=== PATIENT | female | born 1930 | race Caucasian/White ===

== ENCOUNTER 2018-07-28 15:35 | Emergency (ER) | payer MEDICARE, BC ==
[2018-07-28 15:57] VITALS: BP 120/80
[2018-07-28] MEDS ORDERED: Sodium Chloride 0.9% 10 ML Syringe FLUSH PRN (16:59)
--- NOTE | 2018-07-28 19:46 | EDM.PDOC ---
ED HPI GENERAL MEDICAL PROBLEM - General Chief Complaint: Neurological Problem Stated Complaint: PT DOCTOR RECOMMEND BLOOD WORK/EKG/UNRINE TEST Time Seen by Provider: 07/28/18 16:43 Source of Information: Reports: Patient, Family, RN Notes Reviewed - History of Present Illness INITIAL COMMENTS - FREE TEXT/NARRATIVE: 88-year-old female been brought in by family member with concern about rate running more rapid than usual. She does have history of intermittent atrial fib and apparently for the last 2 or 3 days has had some intermittent heart readings in the 110-114 range. She also has had some generalized weakness, nonspecific dizziness when standing or walking. No chest pain or difficulty breathing. However family member tells me that her normal weight is in the 128 to 1:30 range and that her weight today is running at 133 so about 3-5 pounds over baseline. Also she has history of bladder cancer and family members have great concern that she might have a UTI with a recent cystoscopy done just a few weeks ago and UTI that was treated not long before that. Patient reports no voiding symptoms. No fever chills nausea or vomiting. There has been no peripheral leg edema. - Related Data Allergies Allergy/AdvReac Type Severity Reaction Status Date / Time azithromycin Allergy Other Verified 07/28/18 17:47 codeine Allergy Lightheaded Verified 03/15/16 11:31 ness Fish Containing Products Allergy Other Verified 03/15/16 11:31 Iodinated Contrast- Oral and Allergy Rash Verified 03/15/16 11:31 IV Dye [Iodinated Contrast Media - IV Dye] Penicillins Allergy Hives Verified 03/15/16 11:31 sulfamethoxazole Allergy Hives Verified 07/28/18 17:47 [From Bactrim] trimethoprim [From Bactrim] Allergy Hives Verified 07/28/18 17:47 Home Meds: Home Meds Levothyroxine [Synthroid] 100 mcg PO ASDIRECTED 01/08/16 [History] Losartan Potassium 100 mg PO DAILY 01/08/16 [History] Metoprolol Succinate [Toprol XL] 25 mg PO BID 01/08/16 [History] Apixaban [Eliquis] 2.5 mg PO BID 02/05/16 [History] Furosemide [Lasix] 40 mg PO DAILY 02/05/16 [History] Potassium Chloride 10 meq PO BID 02/05/16 [History] Sotalol [Betapace] 50 mg PO DAILY 07/28/18 [History] Past Medical History HEENT History: Reports: Impaired Vision, Macular Degeneration Cardiovascular History: Reports: Afib, Hypertension, SOB on Exertion Respiratory History: Reports: Pneumonia, Recurrent Gastrointestinal History: Reports: Irritable Bowel Syndrome Genitourinary History: Reports: UTI, Recurrent Musculoskeletal History: Reports: Other (See Below) Other Musculoskeletal History: tendonitis in hand and had shoulder surgery Endocrine/Metabolic History: Reports: Other (See Below) Other Endocrine/Metabolic History: thyroid cancer Oncologic (Cancer) History: Reports: Bladder, Thyroid - Past Surgical History Respiratory Surgical History: Reports: Other (See Below) Female Surgical History: Reports: D&C, Hysterectomy Social & Family History - Tobacco Use Smoking Status *Q: Former Smoker Used Tobacco, but Quit: Yes Month/Year Tobacco Last Used: 10 - Caffeine Use Caffeine Use: Reports: Coffee - Recreational Drug Use Recreational Drug Use: No ED ROS GENERAL - Review of Systems Review Of Systems: See Below Constitutional: Denies: Fever, Chills, Diaphoresis HEENT: Reports: No Symptoms Respiratory: Reports: Shortness of Breath. Denies: Cough Cardiovascular: Reports: Dyspnea on Exertion, Lightheadedness. Denies: Chest Pain GI/Abdominal: Denies: Abdominal Pain, Nausea, Vomiting : Reports: No Symptoms Musculoskeletal: Denies: Back Pain Skin: Reports: No Symptoms Neurological: Reports: Dizziness. Denies: Numbness, Tingling, Trouble Speaking , Difficulty Walking, Weakness ED EXAM, DIZZINESS - Physical Exam Exam: See Below General Appearance: Alert, No Apparent Distress Eye Exam: Bilateral Eye: PERRL Throat/Mouth: Normal Inspection, Normal Oropharynx Head Exam: Atraumatic. No: Facial Swelling Neck: Supple, Other (No JVD) Respiratory/Chest: No Respiratory Distress, Lungs Clear. No: Rales, Rhonchi, Wheezing Cardiovascular: Irregularly Irregular GI/Abdominal: Soft, Non-Tender Neurological: Alert, No Motor/Sensory Deficits, Oriented x 3 Back Exam: No: CVA Tenderness (L), CVA Tenderness (R) Extremities: Normal Inspection. No: Pedal Edema, Leg Pain Skin Exam: Warm, Dry, Normal Color EKG INTERPRETATION EKG Date: 07/28/18 Rhythm: A-Fib Rate (Beats/Min): 92 [place]: Normal QRS: LBBB ST-T: Depressed (T-wave inversions with mild ST depression V4, 5 and 6) Course - Vital Signs Last Recorded V/S: Last Vital Signs Temp 97.7 F 07/28/18 15:53 Pulse 97 07/28/18 15:53 Resp 20 07/28/18 15:53 BP 120/80 07/28/18 15:53 Pulse Ox 97 07/28/18 15:53 - Orders/Labs/Meds Orders: Active Orders 24 hr Category Date Time Status EKG 12 Lead [EKG Documentation Completion] [RC] STAT Care 07/28/18 17:00 Active Peripheral IV Care [RC] . DIRECTED Care 07/28/18 17:01 Active Chest 1V Frontal [CR] Stat Exams 07/28/18 17:00 Taken CULTURE URINE [RM] Stat Lab 07/28/18 17:20 Received Sodium Chloride 0.9% [Saline Flush] Med 07/28/18 16:59 Active 10 ml FLUSH ASDIRECTED PRN Peripheral IV Insertion Adult [OM.PC] Stat Oth 07/28/18 17:00 Ordered Medication Orders Sodium Chloride (Saline Flush) 10 ml FLUSH ASDIRECTED PRN PRN Reason: Keep Vein Open Last Admin: 07/28/18 17:26 Dose: 10 ml Labs: Laboratory Tests 07/28/18 07/28/18 07/28/18 Range/Units 17:15 17:15 17:15 WBC 7.16 (3.98-10.04) K/mm3 RBC 4.07 (3.98-5.22) M/mm3 Hgb 12.2 (11.2-15.7) gm/L Hct 37.8 (34.1-44.9) % MCV 92.9 (79.4-94.8) fl MCH 30.0 (25.6-32.2) pg MCHC 32.3 (32.2-35.5) g/dl RDW Std Deviation 54.5 H (36.4-46.3) fL Plt Count 465 H (182-369) K/mm3 MPV 10.6 (9.4-12.3) fl Neut % (Auto) 58.2 (34.0-71.1) % Lymph % (Auto) 26.4 (19.3-51.7) % [place] % (Auto) 5.9 (4.7-12.5) % Eos % (Auto) 4.2 (0.7-5.8) Baso % (Auto) 5.2 H (0.1-1.2) % Neut # (Auto) 4.17 (1.56-6.13) K/mm3 Lymph # (Auto) 1.89 (1.18-3.74) K/mm3 [place] # (Auto) 0.42 H (0.24-0.36) K/mm3 Eos # (Auto) 0.30 (0.04-0.36) K/mm3 Baso # (Auto) 0.37 H (0.01-0.08) K/mm3 Manual Slide Review Abnormal smear Sodium 135 L (136-145) mEq/L Potassium 3.9 (3.5-5.1) mEq/L Chloride 103 (98-107) mEq/L Carbon Dioxide 25 (21-32) mEq/L Anion Gap 10.9 (5-15) BUN 42 H (7-18) mg/dL Creatinine 1.6 H (0.55-1.02) mg/dL Est Cr Clr Drug Dosing 20.10 mL/min Estimated GFR (MDRD) 30 (>60) mL/min BUN/Creatinine Ratio 26.3 H (14-18) Glucose 110 (83-115) mg/dL Calcium 9.2 (8.5-10.1) mg/dL Total Bilirubin 0.2 (0.2-1.0) mg/dL AST 18 (15-37) U/L ALT 22 (14-59) U/L Alkaline Phosphatase 97 (46-116) U/L NT-Pro-B Natriuret Pep 5035 H (0-450) pg/mL Total Protein 7.5 (6.4-8.2) g/dl Albumin 3.2 L (3.4-5.0) g/dl Globulin 4.3 gm/dL Albumin/Globulin Ratio 0.7 L (1-2) Urine Color (Yellow) Urine Appearance (Clear) Urine pH (5.0-8.0) Ur Specific [place] (1.005-1.030) Urine Protein (Negative) Urine Glucose (UA) (Negative) Urine Ketones (Negative) Urine Occult Blood (Negative) Urine Nitrite (Negative) Urine Bilirubin (Negative) Urine Urobilinogen (0.2-1.0) Ur Leukocyte Esterase (Negative) Urine RBC (0-5) /hpf Urine WBC (0-5) /hpf Ur Epithelial Cells (0-5) /hpf Urine Bacteria (FEW) /hpf Hyaline Casts (0-5) /lpf Urine Mucus (FEW) /hpf 07/28/18 Range/Units 17:25 WBC (3.98-10.04) K/mm3 RBC (3.98-5.22) M/mm3 Hgb (11.2-15.7) gm/L Hct (34.1-44.9) % MCV (79.4-94.8) fl MCH (25.6-32.2) pg MCHC (32.2-35.5) g/dl RDW Std Deviation (36.4-46.3) fL Plt Count (182-369) K/mm3 MPV (9.4-12.3) fl Neut % (Auto) (34.0-71.1) % Lymph % (Auto) (19.3-51.7) % [place] % (Auto) (4.7-12.5) % Eos % (Auto) (0.7-5.8) Baso % (Auto) (0.1-1.2) % Neut # (Auto) (1.56-6.13) K/mm3 Lymph # (Auto) (1.18-3.74) K/mm3 [place] # (Auto) (0.24-0.36) K/mm3 Eos # (Auto) (0.04-0.36) K/mm3 Baso # (Auto) (0.01-0.08) K/mm3 Manual Slide Review Sodium (136-145) mEq/L Potassium (3.5-5.1) mEq/L Chloride (98-107) mEq/L Carbon Dioxide (21-32) mEq/L Anion Gap (5-15) BUN (7-18) mg/dL Creatinine (0.55-1.02) mg/dL Est Cr Clr Drug Dosing mL/min Estimated GFR (MDRD) (>60) mL/min BUN/Creatinine Ratio (14-18) Glucose (83-115) mg/dL Calcium (8.5-10.1) mg/dL Total Bilirubin (0.2-1.0) mg/dL AST (15-37) U/L ALT (14-59) U/L Alkaline Phosphatase (46-116) U/L NT-Pro-B Natriuret Pep (0-450) pg/mL Total Protein (6.4-8.2) g/dl Albumin (3.4-5.0) g/dl Globulin gm/dL Albumin/Globulin Ratio (1-2) Urine Color Yellow (Yellow) Urine Appearance Clear (Clear) Urine pH 6.0 (5.0-8.0) Ur Specific [place] 1.015 (1.005-1.030) Urine Protein Negative (Negative) Urine Glucose (UA) Negative (Negative) Urine Ketones Negative (Negative) Urine Occult Blood Trace-lysed H (Negative) Urine Nitrite Negative (Negative) Urine Bilirubin Negative (Negative) Urine Urobilinogen 0.2 (0.2-1.0) Ur Leukocyte Esterase 1+ H (Negative) Urine RBC 0-5 (0-5) /hpf Urine WBC 0-5 (0-5) /hpf Ur Epithelial Cells 0-5 (0-5) /hpf Urine Bacteria Rare (FEW) /hpf Hyaline Casts 0-5 (0-5) /lpf Urine Mucus Few (FEW) /hpf Meds: Medications Generic Name Dose Route Start Last Admin Trade Name Lorenzoq PRN Reason Stop Dose Admin Sodium Chloride 10 ml 07/28/18 16:59 07/28/18 17:26 Saline Flush FLUSH 10 ml ASDIRECTED PRN Administration Keep Vein Open - Re-Assessments/Exams Free Text/Narrative Re-Assessment/Exam: 07/28/18 19:43 UA came back with 1+ leukocytes but microscopically negative for UTI. Culture has been ordered to make sure that we are not missing a low-grade asymptomatic UTI. She has continued in atrial fibrillation here in the ED but rate is been primarily in the 90s with very occasional at brief episodes in the low 100s. Blood pressures been good running primarily in the 130s. Chest x-ray shows cardiomegaly but no major pulmonary congestion. Been running in the mid to upper 90s. Therefore it seems reasonable to allow her to go home, will increase her metoprolol from 25 mg every morning to 25 twice a day for now. We'll also have her increase her furosemide from 40 mg every morning to 40 mg every morning , 20 mg at noon in addition as well. She will need to follow-up with her regular medical provider next week at the clinic. Discharge instructions as documented. Departure - Departure Time of Disposition: 19:41 Disposition: Home, Self-Care 01 Condition: Fair Clinical Impression: Atrial fibrillation Qualifiers: Atrial fibrillation type: paroxysmal Qualified Code(s): I48.0 - Paroxysmal atrial fibrillation Congestive heart failure (CHF) Qualifiers: Heart failure type: unspecified Heart failure chronicity: acute on chronic Qualified Code(s): I50.9 - Heart failure, unspecified - Discharge Information Referrals: Brody Franks MD [Primary Care Provider] - Forms: ED Department Discharge Additional Instructions: Increased your metoprolol from 25 mg every morning to 25 mg twice daily as discussed, increase your furosemide from 40 mg every morning to 40 mg every morning plus an additional 20 mg at noon. Watch your weight daily and when you get down to 130 pounds, than go back to just the 40 [address] Franks next week in about 4-5 days or next available appointment. Call Tuesday for appointment. Return to ED as needed if symptoms worsening in any way. - My Orders Last 24 Hours: My Active Orders 07/28/18 16:59 Sodium Chloride 0.9% [Saline Flush] 10 ml FLUSH ASDIRECTED PRN 07/28/18 17:00 EKG 12 Lead [EKG Documentation Completion] [RC] STAT Chest 1V Frontal [CR] Stat Peripheral IV Insertion Adult [OM.PC] Stat 07/28/18 17:01 Peripheral IV Care [RC] . DIRECTED 07/28/18 17:20 CULTURE URINE [RM] Stat - Assessment/Plan Last 24 Hours: My Active Orders 07/28/18 16:59 Sodium Chloride 0.9% [Saline Flush] 10 ml FLUSH ASDIRECTED PRN 07/28/18 17:00 EKG 12 Lead [EKG Documentation Completion] [RC] STAT Chest 1V Frontal [CR] Stat Peripheral IV Insertion Adult [OM.PC] Stat 07/28/18 17:01 Peripheral IV Care [RC] . DIRECTED 07/28/18 17:20 CULTURE URINE [RM] Stat
--- NOTE | 2018-07-30 09:49 | CR ---
Chest: Portable view of the chest was obtained. Comparison: Prior chest x-ray of 01/08/16. Heart is enlarged. Tortuous thoracic aorta is seen. Lungs are clear. Mild scoliosis is noted within the spine. Osteopenia is present. Impression: 1. Findings as noted above. Nothing acute is appreciated on portable chest x-ray. Diagnostic code #2
== END 2018-07-28 19:55 | disposition home or self-care (01) ==
LOC: SUPCPDRO 15:35 → JD.ED 15:35
DX: I11.0 Hypertensive heart disease with heart failure (principal); I50.9 Heart failure, unspecified; I48.0 Paroxysmal atrial fibrillation; Z88.5 Allergy status to narcotic agent; Z88.8 Allergy status to other drugs, medicaments and biological substances; Z88.1 Allergy status to other antibiotic agents; Z88.2 Allergy status to sulfonamides; Z79.899 Other long term (current) drug therapy; Z87.891 Personal history of nicotine dependence
CPT/HCPCS: 36415; 71045; 80053; 81001; 83880; 85025; 87086; 93005; 99284; J7050; 93010